=== PATIENT | female | born 1975 | race Caucasian/White ===

== ENCOUNTER → 2016-06-16 | Outpatient (CLI) | payer BC, SELFPAY ==
--- NOTE | 2016-06-16 14:32 | MRI ---
EXAM DESCRIPTION: Lumbar Spine w/o Contrast CLINICAL HISTORY: 40 years, Female, LOW BACK PAIN COMPARISON: None TECHNIQUE: Multiplanar multi sequence images of the lumbar spine were obtained without gadolinium contrast. FINDINGS: The designated L5-S1 disc is present on axial image 3. Vertebral body height and alignment are well-maintained. No bone marrow signal abnormalities are noted. The conus lies posterior to the L1-2 disc, and the cauda equina is unremarkable. The paraspinal and visualized retroperitoneal soft tissues are unremarkable. At L1-2, the intervertebral disc and facet joints are unremarkable. At L2-3, there is no disc bulging or facet joint degeneration. At L3-4, there is no significant disc bulging or facet joint degeneration. At L4-5, there is disc desiccation with concentric disc bulging and a 7 or 8 mm posterior midline annular tear. The facet joints are fairly well-maintained, but findings result in mild central canal and mild bilateral neuroforaminal stenosis. No definite nerve root abutment. At L5-S1, there is disc desiccation with a 10 or 11 mm posterior (midline annular tear. There is concentric disc bulging with minimal facet joint degeneration. Findings result in mild central canal and mild bilateral neuroforaminal stenosis. Disc material approaches but only questionably abuts the left S1 nerve root in the lateral recess. IMPRESSION: Disc desiccation with concentric disc bulging and posterior annular tears at L4-5 and L5-S1 resulting in central canal stenosis at both levels and possible nerve root abutment at L5-S1 as detailed above. Electronically signed by: Christ Antony MD 06/16/2016 2:31 PM CDT
== END | disposition home or self-care (01) ==
LOC: MRI 10:55
PROVIDERS: ATTEND Family Medicine
DX: M51.37 Other intervertebral disc degeneration, lumbosacral region (principal)

== ENCOUNTER → 2016-12-22 | Outpatient (CLI) | payer BC, SELFPAY ==
--- NOTE | 2016-12-23 08:52 | MAM ---
EXAM DESCRIPTION: 3D Screening BILATERAL CLINICAL HISTORY: 41 yearsFemaleSCREENING no complaints. Remote family history of breast and ovarian cancer. Postmenopausal. Currently on HRT. COMPARISON: Baseline study at this facility. No prior reports available. TECHNIQUE: Bilateral CC and MLO projection full-field images, 3-D tomosynthesis digital mammographic technique. Also bilateral synthesized CC/ MLO full-field images. CAD not utilized. FINDINGS: The breast parenchymal density pattern is: Scattered areas of fibroglandular density. No skin thickening or nipple retraction bilateral axillary and intramammary lymph nodes. Solitary microcalcifications. No focal, stellate mass or density, focal asymmetry , and no suspicious microcalcifications bilaterally. IMPRESSION: BI-RADS CATEGORY: 2 - BENIGN FINDINGS. FOLLOW UP: Routine digital bilateral screening, one year interval from November 2016. Written communication explaining the IMPRESSION and follow-up, will be mailed to the patient and referring health care provider. According to the [employer], yearly mammograms are recommended starting at age 40 and continuing as long as a woman is in good health. Any breast change noted on a breast self-exam should be reported promptly to the patient's healthcare provider. Breast MRI is recommended for women with an approximately 20-25% or greater lifetime risk of breast cancer, including women with a strong family history of breast or ovarian cancer and women who have been treated for Hodgkin's disease. A negative mammographic report should not delay tissue diagnosis in patients with significant clinical history or physical findings. Extremely dense breast tissue limits the sensitivity of digital mammography. Electronically signed by: Mckinley Lopez MD 12/23/2016 8:50 AM CDT
== END | disposition home or self-care (01) ==
LOC: MAMMO 08:06
PROVIDERS: ATTEND Nurse Practitioner Family
DX: Z12.31 Encounter for screening mammogram for malignant neoplasm of breast (principal)
CPT/HCPCS: 77063; G0202

== ENCOUNTER → 2018-01-04 | Outpatient (CLI) | payer BC | LOC: GMAL 10:12 | PROVIDERS: ATTEND Family Medicine | DX: D51.3 Other dietary vitamin B12 deficiency anemia (principal); E34.8 Other specified endocrine disorders; E07.89 Other specified disorders of thyroid; E55.9 Vitamin D deficiency, unspecified ==

== ENCOUNTER → 2019-08-30 | Outpatient (CLI) | payer BC | LOC: GMAL 10:35 | PROVIDERS: ATTEND Family Medicine | DX: Z00.00 Encounter for general adult medical examination without abnormal findings (principal) ==